=== PATIENT | female | born 1935 | race Caucasian/White ===

== ENCOUNTER 2017-11-24 01:53 | Observation (INO) | payer MEDICARE, OTHER ==
[~2017-11-24] VITALS: Ht 160 cm; Wt 64.0 kg
[~2017-11-24 01:53] MED LIST: ACYCLOVIR800 MG PO; AMOXICILLIN500 MG PO; CIPRODEX1 ML AS; CORTISPORIN OTI10 ML AS; FAMCICLOVIR500 MG OR; HYDROCHLOROT25 MG PO; LEVOTHYROXIN75 MC1 PO; MULTI VIT; OMEPRAZOLE40 MG PO; STERAPRED DS OR; SYNTHROID50 MCG PO; TRAMADOL HCL50 MG PO; ZITHROMAX250 MG PO; ZPAK OR
--- NOTE | 2017-11-24 02:43 | NUR ---
IN WITH PT. SYSTOLIC B/P ELEVATED. [address]UAL ORDERED PER [address]. REESE PT STATES THAT SHE IS HAVING LEFT ARM PAIN WITH NAUSEA.
[2017-11-24 02:55] LABS: HEMATOCRIT 38.1 % (37.0-47.0); HEMOGLOBIN 12.7 g/dl (12.0-16.0); IMMATURE GRANULOCYTES 0.3 % (0.0-1.0); MEAN CELL VOLUME 86.4 fL CALC (80.0-100.0); MEAN CORPUSCULAR HGB 28.8 pG CALC (26.0-32.0); MEAN CORPUSCULAR HGB CONC 33.3 g/L CALC (32.0-36.0); NEUT# 3.05 thou/uL (2.00-7.15); RED BLOOD COUNT 4.41 mill/uL (4.20-5.60); RED CELL DISTRI WIDTH 14.7 % (11.5-15.5)
--- NOTE | 2017-11-24 03:00 | NUR ---
PT RESTING COMFORTABLY AT THIS TIME. NO OBVIOUS DISTRESS NOTED.
[2017-11-24 03:08] LABS: ALBUMIN 3.9 g/dL (3.2-5.0); ALKALINE PHOSPHATASE 133 u/l (38-126); ANION GAP 15 (6-22 (CALC)); BILIRUBIN, TOTAL 0.4 mg/dL (0.0-1.4); BUN 27 mg/dL (8-23); BUN/CREATININE RATIO 31 (12-20 (CALC)); CARBON DIOXIDE 30 mmol/l (22-30); CHLORIDE 102 mmol/l (95-108); CREATININE 0.9 mg/dL (0.5-1.0); GFR 60 ML/MIN (>=60 (CALC)); GFR FOR AFR.AMER. > 60 ML/MIN (>=60 (CALC)); POTASSIUM 3.4 mmol/l (3.5-5.1); SGOT/AST 35 u/l (9-36); SGPT/ALT 24 u/l (11-66); SODIUM 143 mmol/l (137-146); TOTAL PROTEIN 7.3 g/dL (6.3-8.2)
[2017-11-24 03:20] LABS: MYOGLOBIN 170 ng/mL (0 - 62)
--- NOTE | 2017-11-24 04:00 | NUR ---
PT CONTINUES TO HAVE NO COMPLAINTS. STATES THAT SHE FEELS SILLY FOR COMING TO HOSPITAL FOR BACK PAIN & LEFT ASRM PAIN. ASSURED PT THAT IT WAS NOT A MISTAKE TO COME HERE. LET TROPONIN LEVELS INDICATE IF INJURY DONE TO HEART.
--- NOTE | 2017-11-24 04:38 | NUR ---
pt resting comfortebly at this time, reading book. Headache dissipating after administration of Tylenol. Pt has been seen by MD and advised that admit is going to be for overnite.
[2017-11-24 05:45] VITALS: BP 157/86
--- NOTE | 2017-11-24 05:52 | NUR ---
PT ARRIVED TO THE FLOOR WITH ER STAFF; AMBULATED TO BED. VITAL SIGNS OBTAINED. PT ORIENTED TO ROOM AND CALL LIGHT SYSTEM. PT DENIES ANY PAIN OR DISCOMFORT. SAFETY PRECAUTIONS REINFORCED. TELE IN PLACE. FREQUENT ROUNDS MADE. CALL LIGHT WITHIN REACH.
[2017-11-24 07:57] VITALS: BP 152/89
[2017-11-24 13:52] VITALS: BP 167/79
--- NOTE | 2017-11-24 14:07 | NUR ---
Discharge instructions given. Patient verbalizes understanding of same. Discharged in good condition via Ambulatory to Home with *Other. All belongings sent with pt.
== END 2017-11-24 14:10 | disposition home or self-care (01) ==
LOC: ED 01:53 → ED-I 04:00 → ED 04:40 → MS2 04:41
PROVIDERS: Emergency Medicine; ADMIT Internal Medicine; ATTEND Internal Medicine
DX: M25.512 Pain in left shoulder (principal); E03.9 Hypothyroidism, unspecified; E78.5 Hyperlipidemia, unspecified; R07.9 Chest pain, unspecified; Z85.3 Personal history of malignant neoplasm of breast; Z90.12 Acquired absence of left breast and nipple

== ENCOUNTER 2017-12-19 07:55 | Day surgery (SDC) | payer MEDICARE, OTHER ==
[~2017-12-19] VITALS: Ht 166.4 cm; Wt 61.2 kg
[~2017-12-19 07:55] MED LIST changes: +ASPIRIN ADULT L81 M2 PO; +TRIAMCINOLON0.13 EX; +VOLTAREN1%GEL TOP
[2017-12-19 09:52] VITALS: BP 126/74
== END 2017-12-19 10:33 | disposition home or self-care (01) ==
LOC: ENDO 07:55
PROVIDERS: ATTEND Surgery
PROC: 0DJD8ZZ Inspection of Lower Intestinal Tract, Via Natural or Artificial Opening Endoscopic (ICD-10-PCS; principal; 2017-12-19)
DX: Z12.11 Encounter for screening for malignant neoplasm of colon (principal); Q43.8 Other specified congenital malformations of intestine; I10 Essential (primary) hypertension; E03.9 Hypothyroidism, unspecified

== ENCOUNTER 2018-05-01 10:32 | Inpatient (IN) | payer MEDICARE, OTHER ==
[~2018-05-01] VITALS: Ht 160 cm; Wt 63.5 kg
[2018-05-01] MEDS ORDERED: NORVASC PO (17:13)
[2018-05-20] VITALS (15 sets, daily range): BP systolic 106–170; BP diastolic 61–86
--- NOTE | 2018-05-20 10:52 | NUR ---
Pt admitted tp ICU bed 5 via bed from OR as Med Surg overflow; all monitoring equipment explained prior to application; admission assessment completed; see interventions; 20g in RW with LR infusing at prescribed rate; iv site benign; lungs with some scattered posterior rhonchi; moist TRAVELING NURSE cough noted; pt states she was "fighting a cold prior to OR; arrived with o2 via NC at 3l; pt denies using O2 at home; O2 sats 92-97% on 3L; will notify RT for IS delivery and instruction; abd soft; bs active; last bm yesterday per pt; skin warm dry and intact with dressing intact to left knee; no drng noted; brisk cap refill and sensation noted to lle; no edema noted; tele reading SR rate in the 80's; bp stable; temp 94.8 tympanic; will place bear hugger (used on pt in OR); scd intact on RLE; ice pack on left knee; oriented to room and unit; will reinforce education related to post-op drowsiness; pt arouses to verbal stimuli and is alert, oriented and appropriate; does nod off easily with out continued verbal stimuli; easily visible from nurses station for safety; call pratt within reach.
--- NOTE | 2018-05-20 11:00 | NUR ---
Temp 95.8 tympanically, pt denies feeling cold; Bear hugger remains in use. continues to deny pain; ice pack placed back on left knee.
--- NOTE | 2018-05-20 11:25 | NUR ---
Marisa Saavedra at bedside for IS delivery and instruction, pt max volume 1200 mL will continue to encourage related to drowsiness.
--- NOTE | 2018-05-20 11:45 | NUR ---
pt drowsy but arouses easily to verbal stimuli; answers questions appropriately, on bed navas at this time.
--- NOTE | 2018-05-20 12:15 | NUR ---
Pt off bedpan with only 50ml out, urine is clear yellow; will continue to monitor.
--- NOTE | 2018-05-20 13:01 | NUR ---
pt remains drowsy but arouses to light verbal stimuli; follows all commands without incident; call pratt within reach; temp remain 95.8 tympanically pt continues to deny being cold. Bear hugger remains in use.
--- NOTE | 2018-05-20 14:00 | NUR ---
TYMPANIC TEMP 96.6, BEAR HUGGER REMAINS IN USE.
--- NOTE | 2018-05-20 14:25 | NUR ---
PT VOIDED APPROX 200 ML CLEAR YELLO URINE; BLADDER SCAN SHOWED MAX SCAN AMT OF 398 ML POST VOID; STATES SHE FEELS LIKE SHE IS CONSTANTLY DRIBBLING; REMAINS ON BEDPAN AT THIS TIME PER TP REQUEST; SOME INCONTINENCE NOTED ON PAD, ERIC CARE PROVIDED AND NEW LINENS PLACED.
--- NOTE | 2018-05-20 15:22 | NUR ---
TYMPANIC TEMP 96.9; PT OTLERATING WATER WELL, VS REMAIN STABLE PT VOIDS SOME ON BEDPAN AND INCONTINENT OF SMALL AMOUNTS, ERIC CARE PROVIDED FREQUENTLY; CALL REEVES WITHIN REACH
--- NOTE | 2018-05-20 16:30 | NUR ---
INDIRA FROM PT AT BEDSIDE SPOKE WITH PT REGARDING PLAN OF CARE AND THERAPY PLAN STARTING IN AM.
--- NOTE | 2018-05-20 17:23 | NUR ---
SET UP ASSIST PROVIDED FOR PM MEAL, ENCOURAGED TO EAT SLOWLY UNTIL SURE OF TOLERANCE, VERBALIZES UNDERSTANDING.
--- NOTE | 2018-05-20 18:10 | NUR ---
VISITORS AT BEDSIDE, OFFERS NO NEW COMPLAINTS, CALL REEVES WITHIN REACH
--- NOTE | 2018-05-20 19:00 | NUR ---
awake. no acute distress. o2 cont per nc. pneumatic system conveyor operator shows sinus rhythm. #20 rt wrist rl infusing @ 100cchr. po fluids taken well. voids "all the time". lt knee dsg cdi & elevated on pillow. temp 98.4. bear hugger removed. percocet 5mg po per request for lt knee pain. fall precautions cont.
--- NOTE | 2018-05-20 20:30 | NUR ---
c/o "hot". temp 99.2
--- NOTE | 2018-05-20 23:00 | NUR ---
c/o "it's terrible pain". dilaudid 1mg ivp given.
--- NOTE | 2018-05-20 23:30 | NUR ---
eyes closed. no distress. temp 99.7.
[2018-05-21 00:01] VITALS: BP 149/72
--- NOTE | 2018-05-21 02:00 | NUR ---
eyes closed. no distress. cardiac cath lab radiology technologist shows sinus rhythm.
--- NOTE | 2018-05-21 04:00 | NUR ---
eyes closed. no apparent distress. cardiac monitor technician shows sinus rhythm.
[2018-05-21 06:00] VITALS: BP 135/65
--- NOTE | 2018-05-21 06:50 | NUR ---
RECVD REPORT FROM TRENT MARTINEZ. PT CURRENTLY SLEEPING IN ICU BED. NO S/S OF DISTRESS AT THIS TIME.
--- NOTE | 2018-05-21 07:10 | NUR ---
PT HAS MANY COMPLAINTS THIS AM. C/O PAIN TO LEFT KNEE AFTER REPLACEMENT YESTERDAY. C/O PAIN TO RIGHT HIP WHICH PT STATES IS FRACTURED. C/O DRY MOUTH "BECAUSE EVERYTHING JUST RUNS RIGHT OUT OF HER". PTS SPEECH IS SLURRED & PT APPEARS GROGGY. BANDAGES STILL IN PLACE FROM YESTERDAYS PROCEDURE. SKIN IS WARM/DRY, WNL. STRONG PULSES TO ALL EXTREMETIES. GOOD CAP REFILL. BREATHING EVEN/UNLABORED, LUNG SOUNDS CLEAR. ABD SOFT/NONTENDER, ACTIVE BS. NO EDEMA. EYES PERRLA @4. DIALUDID GIVEN LAST NIGHT FOR PAIN.
--- NOTE | 2018-05-21 07:40 | NUR ---
CALLED INTO ROOM FOR IV PUMP NOISE. PT STATES "SHE HAD TO LISTEN TO THAT NOISE FOR 20 MINS LAST NIGHT WHILE THE PERSON NEXT DOOR WAS DYING". (EXACT WORDS) WHEN ASKED TO REPEAT THAT, PT SAID "THE STAFF WAS BUSY DEALING WITH THAT PERSON DYING LAST NIGHT AND COULDNT EVEN COME QUIET HER PUMP. I MEAN THEY SHOULD'VE PULLED THE PLUG ALREADY". ROAD MONKEY AWARE.
--- NOTE | 2018-05-21 07:54 | NUR ---
VISITOR @BEDSIDE. PT TEARFUL, STATING "SHE DOESN'T THINK ANYONE HERE UNDERSTANDS THAT SHE IS IN PAIN" WHILE I AM STANDING NEXT TO HER WITH PAIN MED IN HAND.
--- NOTE | 2018-05-21 08:22 | NUR ---
PT REQUEST HOT TEA INSTEAD OF COFFEE. PT DID NOT LIKE BREAKFAST, STATING ITS COLD & RUBBERY.
--- NOTE | 2018-05-21 08:43 | NUR ---
PT EVALUATION PLACED PER WRITTEN ORDER BY DR HILL ON 05/20/18 @0900, FOUND IN CHART.
--- NOTE | 2018-05-21 09:09 | NUR ---
PLEB @BEDSIDE FOR LAB DRAW
--- NOTE | 2018-05-21 09:19 | NUR ---
DR RODRIGUEZ @BEDSIDE ASSESSING PT & DISCUSSING POC WITH PT.
--- NOTE | 2018-05-21 09:21 | NUR ---
PT TOLD MD THAT IT IS HER LEFT HIP NOT RIGHT HIP. THEN TOLD MD THAT IT IS A PUBIC FRACTURE FROM A FALL A COUPLE WEEKS AGO.
[2018-05-21 09:22] LABS: HEMOGLOBIN 13.2 g/dl (12.0-16.0)
--- NOTE | 2018-05-21 09:47 | NUR ---
PER DR RODRIGUEZ, STOP IVF.
--- NOTE | 2018-05-21 10:39 | NUR ---
PT HAD PT UP IN RECLINER FOR A WHILE EARLIER THEN ASSISTED HER BACK TO BED. PT NOW SLEEPING. NO S/S OF DISTRESS.
--- NOTE | 2018-05-21 11:02 | NUR ---
PT REMINDED TO USE INCENTIVE SPIROMETER & EDUCATED ABOUT SAME. PT RETURNED DEMONSTRATION.
--- NOTE | 2018-05-21 11:26 | NUR ---
VISITOR AT BEDSIDE WITH PT.
--- NOTE | 2018-05-21 12:03 | NUR ---
PT SITTING UP IN BED, EATING LUNCH. VOLUNTEER FRIENDS VISITING PT OFF/ON ALL DAY.
[2018-05-21 12:32] VITALS: BP 140/77
--- NOTE | 2018-05-21 12:35 | NUR ---
PT OVERHEARD COMPLAINING TO A FRIEND @BEDSIDE THAT SHE WAS GOING TO COMPLAIN ABOUT HER CARE IN THE ICU. PT HAS BEEN ASKED MULTIPLE TIMES, IF THERE WAS ANYTHING ELSE SHE NEEDED. PT IS A&Ox4. PT C/O URINATING ON HERSELF ALL DAY. STAFF UNAWARE OF INCIDENT BUT WILL GET PT CLEANED UP SOON POSSIBLE. DEPT SHRINKER NOTIFIED.
--- NOTE | 2018-05-21 13:22 | NUR ---
PT CLEANED, BATHED, LINENS CHANGED, WICK EXTERNAL CATH PLACED DUE TO PTS STATEMENT THAT SHE JUST URINATES ON HERSELF WITHOUT BEING ABLE TO CONTROL IT. PT ADMITS SHE USES A POISE PAD AT HOME FOR UNIRARY INCONTENENCE.
--- NOTE | 2018-05-21 13:35 | NUR ---
VOLUNTEER FRIEND @BEDSIDE. PT GIVEN FRESH ICE WATER. CLEAR YELLOW URINE OUTPT SET TO LOW INTERMIT SUCTION.
--- NOTE | 2018-05-21 14:39 | NUR ---
EXTERNAL WICK REMOVED & BREIF PLACED ON PT FOR PHYSICAL THERAPY.
--- NOTE | 2018-05-21 14:57 | NUR ---
YULIANA SCHWARTZ, @BEDSIDE WITH PT DISCUSSING PTS CONCERNS.
--- NOTE | 2018-05-21 15:45 | NUR ---
EXTERNAL WICK CATH DOV REPLACED AFTER PT & MEETING WITH Shweta DEL ANGEL LEFT OPEN TO LET COLD AIR OUT. PT SHOWING FRIEND AT BEDSIDE MEREDITH.
[2018-05-21 16:00] VITALS: BP 143/82
--- NOTE | 2018-05-21 17:02 | NUR ---
PT HAS 3 VISITORS @BEDSIDE. PT APPEARS HAPPY & TALKATIVE.
[2018-05-21 19:30] VITALS: BP 120/65
--- NOTE | 2018-05-21 19:30 | NUR ---
awakens easily. denies pain. conveyor monitor shows sinus rhythm. #20 saline lock rt wrist. po fluids taken well. pure wick cath in place. cannister emptied. dsg to lt knee cdi. extremity remains up on pillow. fall precautions cont.
[2018-05-21 20:00] VITALS: BP 120/71
--- NOTE | 2018-05-21 22:00 | NUR ---
talking on cell phone. no distress.
[2018-05-22] VITALS (14 sets, daily range): BP systolic 96–145; BP diastolic 58–81
--- NOTE | 2018-05-22 00:01 | NUR ---
eyes closed. no distress. hospice patient care secretary shows sinus rhythm.
--- NOTE | 2018-05-22 02:00 | NUR ---
resting quietly. resps even & unlabored. no apparent distress.
--- NOTE | 2018-05-22 04:02 | NUR ---
eyes closed. no apparent pain. school lunch monitor shows sinus rhythm.
--- NOTE | 2018-05-22 05:40 | NUR ---
lab here. blood drawn.
[2018-05-22 06:10] LABS: HEMATOCRIT 41.1 % (37.0-47.0); HEMOGLOBIN 13.5 g/dl (12.0-16.0); IMMATURE GRANULOCYTES 0.3 % (0.0-5.0); MEAN CELL VOLUME 87.6 fL CALC (80.0-100.0); MEAN CORPUSCULAR HGB 28.8 pG CALC (26.0-32.0); MEAN CORPUSCULAR HGB CONC 32.8 g/L CALC (32.0-36.0); NEUT# 9.24 thou/uL (2.00-7.15); RED BLOOD COUNT 4.69 mill/uL (4.20-5.60); RED CELL DISTRI WIDTH 13.8 % (11.5-15.5)
[2018-05-22 06:18] LABS: ALBUMIN 3.3 g/dL (3.2-5.0); ALKALINE PHOSPHATASE 119 u/l (38-126); ANION GAP 13 (6-22 (CALC)); BILIRUBIN, TOTAL 0.8 mg/dL (0.0-1.4); BUN 14 mg/dL (8-23); BUN/CREATININE RATIO 21 (12-20 (CALC)); CARBON DIOXIDE 29 mmol/l (22-30); CHLORIDE 98 mmol/l (95-108); CREATININE 0.7 mg/dL (0.5-1.0); GFR > 60 ML/MIN (>=60 (CALC)); GFR FOR AFR.AMER. > 60 ML/MIN (>=60 (CALC)); MAGNESIUM 2.2 mg/dL (1.6-2.3); POTASSIUM 4.1 mmol/l (3.5-5.1); SGOT/AST 23 u/l (9-36); SGPT/ALT 22 u/l (11-66); SODIUM 135 mmol/l (137-146); TOTAL PROTEIN 6.4 g/dL (6.3-8.2)
--- NOTE | 2018-05-22 07:27 | NUR ---
REPORT RECVD FROM TRENT MARTINEZ. PERCOCET GIVEN 2X LAST NIGHT. MORNING LABS- WBC 11.8, NA 135. PTS WICK CATH EMPTY FROM OVERNIGHT, O2 88% ON RA. WOKE PT UP, WICK CATH STARTED DRAINING INTO CANISTER, NO MESS OVERNIGHT.
--- NOTE | 2018-05-22 08:30 | NUR ---
PT DENIES PAIN AT THIS TIME. A&Ox4. BREATHING IS EVEN/UNLABORED. LUNG SOUNDS CLEAR. PT REMINDED TO USE INCENTIVE SPIROMETER. PULSES STRONG. ABLE TO MOVE ALL EXTREMETIES. LEFT LEG TINGGED ORANGE FROM DYE. ABD SOFT/NONTENDER. DENIES BURNING WITH URINATION. PT STILL ON PUREWICK EXTERNAL CATH, DRAINING INTO SUCTION CANISTER ON LOW INTERMIT SUCTION. EYES PERRLA @2. SPEECH CLEAR.
--- NOTE | 2018-05-22 08:51 | NUR ---
PT @BEDSIDE. PT WICK REMOVED, BREIF IN PLACE.
--- NOTE | 2018-05-22 08:56 | NUR ---
DR RODRIGUEZ @BEDSIDE WITH PT. HE REQUEST DR HILL BE CALLED FOR DC CONSULT. LM WITH ZAIRE OFFICE.
--- NOTE | 2018-05-22 09:23 | NUR ---
PT SITTING UP IN CHAIR. PT/FRIEND BROUGHT PT A COKE "BC SHE IS GOING THROUGH COKE WITHDRAWL".
--- NOTE | 2018-05-22 10:12 | NUR ---
PT GIVEN A BED BATH BY GEOSPATIAL IMAGE ANALYST, LINENS CHANGED, PT PLACED BACK IN BED, PILLOW PLACED UNDER LEFT LEG, NEW WICK IN PLACE- DRAINING INTO CANISTER. GUDELIA W/IN REACH.
--- NOTE | 2018-05-22 10:20 | NUR ---
PT WAS ASSISTED TO CHAIR BY PHYSICAL THERAPIST. PT SAID BRIEF WAS WET, HAS INCONTINENCE SPELLS SINCE SURGERY. PT FEELS WHEN SHE IS ALREADY GOING. PT WAS ASSISTED WITH SPONGE BATH IN CHAIR. PT WASHED FACE AND ARMS. TAXATION CONSULTANT WASHED BACK AND ERIC AREA AND LEGS. TAXATION CONSULTANT ALSO LOTIONED PT. LINENS WERE CHANGED WHILE PT WAS WALKING PHYISCAL THERAPY IN HALLWAY. PT WAS ASSISTED BACK TO BED. PT WANTED TAXATION CONSULTANT TO SEE HOW SHE COULD DO WITH POST OP KNEE. PT PLACED POST OP KNEE ON BED BY SELF AND MOVED TO THE CENTER OF THE BED. TAXATION CONSULTANT CALLED NURSE ARASH IN TO APPLY THE WICK BACK IN PLACE AT THIS TIME. PT TABLE PLACED WITH BELONGINGS IN FRONT OF PT. TAXATION CONSULTANT PLACED ICE ON PT KNEE AT THIS TIME. CALL REEVES IN REACH. NO COMPLAINTS NOTED FROM PT AT THIS TIME.
--- NOTE | 2018-05-22 11:11 | NUR ---
PT FRIEND TO NURSES STATION, STATES PT IS ON THE PHONE COMPLAINING BC SHE DIDNT GET TO TALK TO DIETARY ABOUT HER LUNCH CHOICES WHILE SHE WAS RECVING PT THIS AM.
--- NOTE | 2018-05-22 11:15 | NUR ---
Pt in bed finishing breakfast which she reported not eating much since being in hosp. Pt performed ther ex to BLEs in sit and supine (A/AAROM). Supine to sit with SBA. Pt ambulated 2 x 20' with RW and CGA, verbal cues to take equal step lengths required. Pt c/o dizziness off and on, BP 105 to 112 systolic. Pt left in chair with ULTRA SOUND TECHNICIAN in room, pt wet and nursing aware.
--- NOTE | 2018-05-22 11:54 | NUR ---
WHEN GIVEN HER LUNCH TRAY, PT COMPLAINED THAT "HOUSEKEEPING DID A HALF ASSED JOB CLEANING HER ROOM".
--- NOTE | 2018-05-22 12:07 | NUR ---
PT STATES IT'S "TOO MUCH WORK TO EAT THE ROLL" AT LUNCH. PT ENCOURAGED TO EAT MUCH SHE CAN.
--- NOTE | 2018-05-22 12:56 | NUR ---
2 VISITORS @BEDSIDE. PT APPEARS HAPPY, LAUGHING, JOKING WITH FRIENDS.
--- NOTE | 2018-05-22 14:15 | NUR ---
P.T. CAME FOR PT, PT ASLEEP.
--- NOTE | 2018-05-22 14:20 | NUR ---
REPORT GIVEN TO CAROLINA NAVARRETE ON MSU.
--- NOTE | 2018-05-22 14:27 | NUR ---
Attempted treatment, pt sleeping and preparation for transfer also beginning. Treatment held at this time.
--- NOTE | 2018-05-22 14:40 | NUR ---
PT TRANSFERED TO MSU 283 BY . PT ABLE TO TRANSFER FROM BED TO . ALL BELONGINGS SENT WITH PT, INCLUDING CELLPHONE, TOXICOLOGIST, & WATCH (PT STATES WORTH $35), 2 LUGGAGE BAGS, BOOK, & HOSPITAL ESSENTIALS.
--- NOTE | 2018-05-22 14:50 | NUR ---
PT TRANSFERRED TO ROOM 283 VIA WHEELCHAIR FROM ICU, ORIENTED TO ROOM AND UNIT, BED WEIGHT OBTAINED 69.1 KG, COMFORT MEASURES PROVIDED, WILL CONTINUE TO MONITOR.
--- NOTE | 2018-05-22 15:34 | NUR ---
PT RESTING P.T. NOTIFIED OF PT DESIRE TO BE AWOKEN FOR THERAPY IF THEY COME AND SHE IS SLEEPING, LUNGS CLEAR NO SOB OR DITRESS NOTED, ABD SOFT, MEDICATED WITH LACTULOSE FOR NO BM SINCE ADMISSION, PT ADMITS TO PASSING FLATTUS, NOT WITNESSED BY THIS NURSE. SKIN INTACT, DRESSING TO LEFT KNEE INTACT REPOSITIONED FOR COMFORT, CALL REEVES WITHIN REACH
--- NOTE | 2018-05-22 16:49 | NUR ---
PT ZING OFFERS NO NEW COMPLAINTS, CALL REEVES WITHIN REACH.
--- NOTE | 2018-05-22 18:32 | NUR ---
PT OOB TO BSC WITH DAUGHTER ASSIST, INSTRUCTED TO CALL FOR ANY NEEDED ASSISTANCE, CALL REEVES WITHIN REACH
--- NOTE | 2018-05-22 21:27 | NUR ---
REPORT GIVEN BY ROSALBA FIGUEROA. PATIENT AWAKE AND SITTING UP IN BED. RESP EVEN AND UNLABORED. NO S/S OF DISTRESS NOTED. FALL PRECAUTIONS IN PLACE, PLAN OF CARE DISCUSSED, AND PATIENT INFORMED TO CALL WITH ANY QUESTIONS OR CONCERNS.
[2018-05-23] VITALS: BP 106/65
--- NOTE | 2018-05-23 | NUR ---
PATIENT RESTING WITH EYES CLOSED. RESP EVEN AND UNLABORED. NO S/S OF DISTRESS NOTED.
--- NOTE | 2018-05-23 03:58 | NUR ---
PATIENT RESTING WITH EYES CLOSED. RESP EVEN AND UNLABORED. NO S/S OF DISTRESS NOTED.
[2018-05-23 04:59] VITALS: BP 105/66
[2018-05-23 07:30] VITALS: BP 118/64
--- NOTE | 2018-05-23 07:30 | NUR ---
PT RESTING ALERT AND ORIENTED; AM ASSESSMENT COMPLETED; SPOKE WITH ALVIN IN P.T. TO REMIND THEM OF PT DESIRE TO BE AWOKEN FOR THERAPY IF THEY COME AND SHE IS SLEEPING; ALSO REQUESTED A CALL PRIOR TO ARRIVAL IN ORDER TO MEDICATE PT FOR PAIN TO MAXIMIZE COMFORT FOR THERAPY;LUNGS CLEAR NO SOB OR DITRESS NOTED, ABD SOFT, PT ADMITS TO PASSING FLATTUS, NOT WITNESSED BY THIS NURSE. SKIN INTACT, DRESSING TO LEFT KNEE INTACT DISCUSSED REMOVAL OF DRESSING TODAY WITH PATIENT; ALL QUESTIONS ANSWERED; REPOSITIONED FOR COMFORT; SCD INTACT ON R LEG AND FUNCTIONING; SAFETY MEASURES REINFROCED; BSC AT BEDSIDE; CALL REEVES WITHIN REACH
--- NOTE | 2018-05-23 07:57 | NUR ---
PROVIDED WITH WARM WET WASH CLOTHES FOR WASHING FACE AND HANDS PRIOR TO AM MEAL.
[2018-05-23 08:42] VITALS: BP 118/64
--- NOTE | 2018-05-23 09:00 | NUR ---
PT BACK TO BED WITH MIN ASSIST, TOLERATED WELL, BPOTTOM WASHED AND DRIED (REST DONE PREVIOUSLY BY PT & BOX ATTACHER, LOTION APPLIED. COMFORT MEASURES PROVIDED, WILL CONTINUE TO MONITOR
--- NOTE | 2018-05-23 09:52 | NUR ---
MEDICATED FRO PAIN PER PENDING P.T. VISIT
--- NOTE | 2018-05-23 10:55 | NUR ---
Pt nurse called to pre med pt for treatment and then seen for treatment. She was in bed, moved supine to sit with SBA, transfer to commode chair with CGA and verbal cues. She urinated small amt unable to have BM at this time. Pt had brief placed and transferred back to edge of bed. Sitting A/AAROM ex performed, pt instructed in ex for sitting. Gentle passive HS and calf stretch done. Pt ambulated 1x 40 with RW and CGA, verbal cues for gait pattern with improved pattern noted. Pt was nauseated and vomited towards end of walk. Pt reported being dry and not requiring brief change. She was positioned correctly in chair with call pratt/tray and phone in reach. Pt did not report any further need at this time.
--- NOTE | 2018-05-23 13:49 | NUR ---
PT WAS SEEN RESTING IN THE BED. OOB INDEPENDENTLY. SIT TO STAND WITH CGA AND VERBAL CUES. FELL BACK WHEN ASSUMED STATIC STANDING POSITION, THERAPIST OFFERED MIN A TO ASSIST PT REGAIN HER BALANCE. PT STATED FEELING NAUSEATED BUT STILL AGREED TO AMBULATE IN THE HALLWAY. AMB. PACE WAS VERY SLOW. PT WAS REMINDED ON PROPER POSTURE AND GAIT PATTERN. SHE WAS ABLE TO AMB. ~50 FT. X 2 WITH RW AND CGA. PT WAS THEN ASSISTED BACK TO BED. MIN A ON LIFTING L LEG BACK TO BED. LEFT CALL REEVES BESIDE HER. NO ADVERSE RXNS NOTED OR REPORTED AT THE END OF TX.
--- NOTE | 2018-05-23 13:52 | NUR ---
MADELEINE AWARE OF PLANNED 1530 ANESTHESIOLOGY TEACHER TIME.
--- NOTE | 2018-05-23 13:52 | NUR ---
[facility]
--- NOTE | 2018-05-23 14:06 | NUR ---
FLU VACCINE GIVEN IN RIGHT ARM PER PT REQUEST, OOB TO BSC WITH ONE MOD ASSIST, CALL REEVES WITHIN REACH, WILL CONTINUE TO MONITOR.
--- NOTE | 2018-05-23 15:05 | NUR ---
Discharge instructions given. Patient verbalizes understanding of same. Discharged in stable condition via Wheelchair to [facility] with staff. All belongings sent with pt.
== END 2018-05-23 15:05 | DRG 470 ==
LOC: ICU 05-20 05:58 → MS2 05-20 07:30
PROVIDERS: Internal Medicine Nephrology; ADMIT Orthopaedic Surgery; ATTEND Orthopaedic Surgery
PROC: 0SRD0J9 Replacement of Left Knee Joint with Synthetic Substitute, Cemented, Open Approach (ICD-10-PCS; principal; 2018-05-20)
PROC: 3E0234Z Introduction of Serum, Toxoid and Vaccine into Muscle, Percutaneous Approach (ICD-10-PCS; 2018-05-23)
DX: M17.12 Unilateral primary osteoarthritis, left knee (principal); I10 Essential (primary) hypertension; E78.5 Hyperlipidemia, unspecified; E03.9 Hypothyroidism, unspecified; Z90.12 Acquired absence of left breast and nipple; Z85.3 Personal history of malignant neoplasm of breast; Z23 Encounter for immunization

== ENCOUNTER → 2018-11-05 | Outpatient (REF) | payer MEDICARE, OTHER ==
[~2018-11-05] MED LIST changes: +NORVASC PO
== END | disposition home or self-care (01) ==
LOC: BD 08:14
PROVIDERS: ATTEND Internal Medicine
DX: N95.1 Menopausal and female climacteric states (principal)

== ENCOUNTER → 2018-11-08 | Outpatient (REF) | payer MEDICARE, OTHER | END | disposition home or self-care (01) | LOC: DI 13:51 | PROVIDERS: ATTEND Orthopaedic Surgery | DX: Z47.1 Aftercare following joint replacement surgery (principal); Z96.652 Presence of left artificial knee joint ==

== ENCOUNTER 2019-02-25 09:16 | Emergency (ER) | payer MEDICARE, OTHER ==
[~2019-02-25] VITALS: Ht 160 cm; Wt 60.0 kg
[2019-02-25] MEDS ORDERED: LEVOTHYROXIN50 MCG PO (09:50)
[2019-02-25] MEDS ORDERED: ASPIRIN 8181 MG PO (09:51)
[2019-02-25 10:50] VITALS: BP 121/76
== END 2019-02-25 10:50 | disposition home or self-care (01) ==
LOC: ED 09:16
DX: S30.0XXA Contusion of lower back and pelvis, initial encounter (principal); W01.0XXA Fall on same level from slipping, tripping and stumbling without subsequent striking against object, initial encounter; Y92.009 Unspecified place in unspecified non-institutional (private) residence as the place of occurrence of the external cause; M54.5 Low back pain

== ENCOUNTER 2021-05-07 04:33 | Emergency (ER) | payer MEDICARE, OTHER ==
[~2021-05-07] VITALS: Ht 160 cm; Wt 54.0 kg
[~2021-05-07 04:33] MED LIST changes: +ASPIRIN 8181 MG PO; +LEVOTHYROXIN50 MCG PO
[2021-05-07 05:22] LABS: HEMATOCRIT 38.6 % (37.0-47.0); HEMOGLOBIN 12.6 g/dl (12.0-16.0); MEAN CELL VOLUME 89.8 fL CALC (80.0-100.0); MEAN CORPUSCULAR HGB 29.3 pG CALC (26.0-32.0); MEAN CORPUSCULAR HGB CONC 32.6 g/dL CAL (32.0-36.0); NEUT# 3.54 thou/uL (2.00-7.15); RED BLOOD COUNT 4.3 mill/uL (4.20-5.60); RED CELL DISTRI WIDTH 13.7 % (11.5-15.5)
[2021-05-07 05:25] LABS: URINE BILIRUBIN - DIPSTICK NEGATIVE (NEGATIVE); URINE BLOOD DIPSTICK NEGATIVE (NEGATIVE); URINE COLOR YELLOW; URINE GLUCOSE - DIPSTICK NEGATIVE (NEGATIVE); URINE KETONE NEGATIVE (NEGATIVE); URINE LEUK ESTERASE NEGATIVE (NEGATIVE); URINE PH 6.5 (4.5-8.0); URINE PROTEIN - DIPSTICK NEGATIVE (NEG-TRACE); URINE SPECIFIC GRAVITY 1.015; URINE UROBILINOGEN - DIPSTICK 0.2 E.U./dL (0.2)
[2021-05-07 05:31] LABS: URINE NITRITE - DIPSTICK NEGATIVE (Negative)
[2021-05-07 05:43] LABS: ALBUMIN 3.9 g/dL (3.2-5.0); ALKALINE PHOSPHATASE 125 u/l (38-126); ANION GAP 9 (6-22 (CALC)); BUN 17 mg/dL (8-23); BUN/CREATININE RATIO 22 (12-20 (CALC)); CARBON DIOXIDE 31 mmol/l (22-30); CHLORIDE 102 mmol/l (95-108); CREATININE 0.8 mg/dL (0.5-1.0); GFR > 60 ML/MIN (>=60 (CALC)); GFR FOR AFR.AMER. > 60 ML/MIN (>=60 (CALC)); POTASSIUM 3.7 mmol/l (3.5-5.1); SGOT/AST 35 u/l (9-36); SODIUM 139 mmol/l (137-146); TOTAL PROTEIN 7.6 g/dL (6.3-8.2)
[2021-05-07 05:44] LABS: BILIRUBIN, TOTAL 0.3 mg/dL (0.0-1.4); D-DIMER 3.02 mg/L (0.19-0.60)
[2021-05-07 05:54] LABS: MYOGLOBIN 36 ng/mL (0 - 62)
[2021-05-07 06:32] LABS: ACT PARTIAL THROMBO TIME 21.9 SECONDS (20.0-32.5); INTERNATIONAL NORMALIZED RATIO 1.1 RATIO (0.7-1.3); PROTHROMBIN TIME 11.1 SECONDS (9.0-12.5)
[2021-05-07 10:45] VITALS: BP 163/88
== END 2021-05-07 10:52 | disposition home or self-care (01) ==
LOC: ED 04:33
PROVIDERS: Family Medicine
DX: R00.2 Palpitations (principal); J47.9 Bronchiectasis, uncomplicated; I10 Essential (primary) hypertension; E78.5 Hyperlipidemia, unspecified; Z85.3 Personal history of malignant neoplasm of breast; Z90.12 Acquired absence of left breast and nipple; Z20.822 Contact with and (suspected) exposure to COVID-19
CPT/HCPCS: Q9967

== ENCOUNTER 2022-03-30 09:57 | Emergency (ER) | payer MEDICARE, OTHER ==
[~2022-03-30] VITALS: Ht 160 cm; Wt 54.5 kg
[2022-03-30] VITALS (7 sets, daily range): BP systolic 138–179; BP diastolic 78–107
[~2022-03-30 09:57] MED LIST changes: +LOPRESSOR25 MG PO; +MYRBETRIQ50 MG PO; +XARELTO20 MG PO
== END 2022-03-30 12:58 | disposition home or self-care (01) ==
LOC: ED 09:57
DX: S00.83XA Contusion of other part of head, initial encounter (principal); S80.01XA Contusion of right knee, initial encounter; I10 Essential (primary) hypertension; E78.5 Hyperlipidemia, unspecified; W01.0XXA Fall on same level from slipping, tripping and stumbling without subsequent striking against object, initial encounter; Y93.K1 Activity, walking an animal; Y92.009 Unspecified place in unspecified non-institutional (private) residence as the place of occurrence of the external cause; Z79.01 Long term (current) use of anticoagulants

== ENCOUNTER 2022-05-11 02:32 | Emergency (ER) | payer MEDICARE, OTHER ==
[~2022-05-11] VITALS: Ht 160 cm; Wt 54.0 kg
[2022-05-11] VITALS (8 sets, daily range): BP systolic 157–207; BP diastolic 86–116
[2022-05-11 03:24] LABS: HEMATOCRIT 39.1 % (37.0-47.0); HEMOGLOBIN 12.8 g/dl (12.0-16.0); IMMATURE GRANULOCYTES 0.6 % (0.0-5.0); MEAN CELL VOLUME 87.9 fL CALC (80.0-100.0); MEAN CORPUSCULAR HGB 28.8 pG CALC (26.0-32.0); MEAN CORPUSCULAR HGB CONC 32.7 g/dL CAL (32.0-36.0); NEUT# 2.43 thou/uL (2.00-7.15); RED BLOOD COUNT 4.45 mill/uL (4.20-5.60); RED CELL DISTRI WIDTH 13.6 % (11.5-15.5)
[2022-05-11] MEDS ORDERED: METOPROL TAR25 MG PO (03:24)
[2022-05-11 03:52] LABS: URINE BILIRUBIN - DIPSTICK NEGATIVE (NEGATIVE); URINE BLOOD DIPSTICK NEGATIVE (NEGATIVE); URINE COLOR YELLOW; URINE GLUCOSE - DIPSTICK NEGATIVE (NEGATIVE); URINE KETONE NEGATIVE (NEGATIVE); URINE LEUK ESTERASE TRACE (NEGATIVE); URINE PH 7.5 (4.5-8.0); URINE PROTEIN - DIPSTICK NEGATIVE (NEG-TRACE); URINE UROBILINOGEN - DIPSTICK 0.2 E.U./dL (0.2)
[2022-05-11 03:52] LABS: ALKALINE PHOSPHATASE 117 u/l (38-126); ANION GAP 12 (6-22 (CALC)); BILIRUBIN, TOTAL 0.5 mg/dL (0.0-1.4); BUN 23 mg/dL (8-23); BUN/CREATININE RATIO 26 (12-20 (CALC)); CARBON DIOXIDE 28 mmol/l (22-30); CHLORIDE 106 mmol/l (95-108); CREATININE 0.9 mg/dL (0.5-1.0); GFR FOR AFR.AMER. > 60 ML/MIN (>=60 (CALC)); GFR OTHER RACES 59 ML/MIN (>=60 (CALC)); POTASSIUM 4.9 mmol/l (3.5-5.1); SGOT/AST 33 u/l (9-36); SODIUM 142 mmol/l (137-146); TOTAL PROTEIN 7.4 g/dL (6.3-8.2)
[2022-05-11 03:59] LABS: URINE NITRITE - DIPSTICK NEGATIVE (Negative)
[2022-05-11 04:04] LABS: MYOGLOBIN 48 ng/mL (0 - 62)
== END 2022-05-11 04:26 | disposition home or self-care (01) ==
LOC: ED 02:32
PROVIDERS: Emergency Medicine
DX: I10 Essential (primary) hypertension (principal); I48.91 Unspecified atrial fibrillation; E78.5 Hyperlipidemia, unspecified

== ENCOUNTER 2023-10-24 23:45 | Emergency (ER) | payer MEDICARE, OTHER ==
[~2023-10-24] VITALS: Ht 157.5 cm; Wt 54.4 kg
[~2023-10-24 23:45] MED LIST changes: +AMLODIPINE BESYL5 MG PO; +ASPIRINCHW 81MG PO; +LOPRESSOR 550 MG/TAB PO; +METOPROL TAR25 MG PO; +TAM75CAP PO
[2023-10-24 23:57] VITALS: BP 193/99
[2023-10-25] VITALS (15 sets, daily range): BP systolic 127–191; BP diastolic 74–102
[2023-10-25 01:12] LABS: BASO% 0.9 % (0-3); HEMATOCRIT 40.1 % (37.0-47.0); HEMOGLOBIN 12.6 g/dl (12.0-16.0); IMMATURE GRANULOCYTES 0.2 % (0.0-5.0); LYMPH% 28.4 % (15-41); MEAN CELL VOLUME 90.3 fL CALC (80.0-100.0); MEAN CORPUSCULAR HGB 28.4 pG CALC (26.0-32.0); MEAN CORPUSCULAR HGB CONC 31.4 g/dL CAL (32.0-36.0); MONO% 10.7 % (2-13); NEUT# 2.69 thou/uL (2.00-7.15); NEUT% 50.8 % (42-76); RED BLOOD COUNT 4.44 mill/uL (4.20-5.60); RED CELL DISTRI WIDTH 13.2 % (11.5-15.5)
[2023-10-25 01:32] LABS: ALBUMIN 4.3 g/dL (3.2-5.0); ALKALINE PHOSPHATASE 137 u/l (38-126); ANION GAP 10 (6-22 (CALC)); BILIRUBIN, TOTAL 0.4 mg/dL (0.02-1.3); BUN 22 mg/dL (8-23); BUN/CREATININE RATIO 26 (12-20 (CALC)); CARBON DIOXIDE 29 mmol/l (22-30); CHLORIDE 105 mmol/l (95-108); CREATININE 0.8 mg/dL (0.5-1.0); GFR FOR AFR.AMER. > 60 ML/MIN (>=60 (CALC)); GFR OTHER RACES > 60 ML/MIN (>=60 (CALC)); POTASSIUM 3.8 mmol/l (3.5-5.1); SGOT/AST 37 u/l (9-36); SODIUM 140 mmol/l (137-146); TOTAL PROTEIN 7.9 g/dL (6.3-8.2)
[2023-10-25] MEDS ORDERED: cloNIDine HCL 0.1 MG/TAB PO ONE (03:35)
[2023-10-25] MEDS ORDERED: hydrALAZINE HCL 20 MG/ML VIAL(1 ML) IV ONE (03:50)
[2023-10-25] MEDS ORDERED: CLONIDINE0.2 MG PO (03:54)
== END 2023-10-25 04:47 | disposition home or self-care (01) ==
LOC: ED 23:45
PROVIDERS: Internal Medicine
DX: I10 Essential (primary) hypertension (principal); E78.5 Hyperlipidemia, unspecified

== ENCOUNTER 2024-05-26 09:31 | Emergency (ER) | payer MEDICARE, OTHER ==
[~2024-05-26] VITALS: Ht 157.5 cm; Wt 54.0 kg
[2024-05-26] VITALS (8 sets, daily range): BP systolic 122–154; BP diastolic 68–80
[~2024-05-26 09:31] MED LIST changes: +CLONIDINE0.2 MG PO
== END 2024-05-26 12:08 | disposition home or self-care (01) ==
LOC: ED 09:31
PROC: 2W3TX1Z Immobilization of Left Foot using Splint (ICD-10-PCS; principal; 2024-05-26)
DX: S92.352A Displaced fracture of fifth metatarsal bone, left foot, initial encounter for closed fracture (principal); I10 Essential (primary) hypertension; E78.5 Hyperlipidemia, unspecified; W19.XXXA Unspecified fall, initial encounter; Y92.009 Unspecified place in unspecified non-institutional (private) residence as the place of occurrence of the external cause